=== PATIENT | female | born 1965 | race Caucasian/White ===

== ENCOUNTER 2022-10-18 13:06 | Emergency (ER) | payer BC ==
[2022-10-18] MEDS ORDERED: HYDROmorphone 0.5 MG/0.5 ML Syringe IM ONE (13:38)
== END 2022-10-18 15:15 | disposition home or self-care (01) ==
LOC: JD.ED 13:06
DX: M25.511 Pain in right shoulder (principal); Z91.041 Radiographic dye allergy status
CPT/HCPCS: 96372; 99283; J1170